=== PATIENT | female | born 1995 | race Caucasian/White ===

== ENCOUNTER → 2019-08-14 17:18 | Outpatient (CLI) | payer BC, SELFPAY ==
[2019-08-14 19:05] LABS: Follicle Stimulating Hormone 5.11 mIU/mL
[2019-08-14 19:14] LABS: Testosterone 42.7 ng/dL (5.71-77.0)
[2019-08-14 19:21] LABS: HCG Quantitative /Beta subunit < 2.4 mIU/mL
[2019-08-14 22:58] LABS: Prolactin 11.1 ng/mL (3.0-18.6)
[2019-08-16 07:35] LABS: Dehydroepiandrosterone Sulfate 320.8 ug/dL (110.0-431.7)
== END ==
PROVIDERS: Referring Provider Obstetrics & Gynecology; Visit Provider Obstetrics & Gynecology
DX: N91.2 Amenorrhea, unspecified (principal); N92.6 Irregular menstruation, unspecified
CPT/HCPCS: 36415; 82627; 83001; 84146; 84403; 84702

== ENCOUNTER → 2022-11-10 09:52 | Outpatient (CLI) | payer OTHER, SELFPAY ==
[2022-11-10 11:09] LABS: Add Manual Diff / Slide Review NO; Basophils Absolute Auto 100 /uL (0-100); Basophils Percent Auto 0.7 % (0-2); Eosinophils Absolute Auto 100 /uL (0-450); Eosinophils Percent Auto 1.4 % (2-4); Hematocrit 40.7 % (36-46); Hemoglobin 13.8 g/dL (12.0-16.0); Lymphocytes Absolute Auto 1800 /uL (1100-4500); Lymphocytes Percent Auto 23.4 % (25-40); Mean Corpuscular HGB Conc 33.9 % (30-36); Mean Corpuscular Hemoglobin 29.2 PG (26-34); Monocytes Absolute Auto 400 /uL (0-900); Monocytes Percent Auto 4.6 % (3-14); Neutrophils Absolute Auto 5400 /uL (1500-7000); Neutrophils Percent Auto 69.9 % (50-75); Platelet Count 348 X10^3/uL (150-400); Red Blood Cell Count 4.73 X10^6/uL (4.0-5.2); Red Cell Distribution Width 13.6 % (11.6-14.8); White Blood Cell Count 7.7 X10^3/uL (4.5-11.0)
[2022-11-10 12:33] LABS: HIV 1 & 2 Ab/Ag 4th Gen Combo NEGATIVE (NEGATIVE); Hep C Virus Ab w/Reflex Quant NEGATIVE s/c (NEGATIVE); Hepatitis B Surface Antigen NEGATIVE s/c (NEGATIVE); Rubella Antibody IgG 32.2 IU/mL (>15)
[2022-11-11 06:32] LABS: RPR Screen Non Reactive (Non Reactive)
[2022-11-11 15:20] LABS: Varicella IgG Antibody 1506 index (Immune >165)
== END ==
PROVIDERS: Referring Provider Obstetrics & Gynecology; Visit Provider Obstetrics & Gynecology
DX: Z34.01 Encounter for supervision of normal first pregnancy, first trimester (principal)
CPT/HCPCS: 36415; 80055; 86787; 86803; 86850; 86900; 86901; 87086; 87389

== ENCOUNTER → 2022-11-18 12:11 | Outpatient (CLI) | payer OTHER, SELFPAY ==
[2022-11-18 14:53] LABS: Urine N gonorrhoeae NOT DETECTED
[2022-11-18 15:42] LABS: Urine Chlamydia NOT DETECTED
== END ==
PROVIDERS: Visit Provider Obstetrics & Gynecology
DX: Z34.01 Encounter for supervision of normal first pregnancy, first trimester (principal); Z3A.01 Less than 8 weeks gestation of pregnancy
CPT/HCPCS: 87491; 87591

== ENCOUNTER → 2023-01-08 09:00 | Outpatient (CLI) | payer OTHER, SELFPAY | PROVIDERS: Referring Provider Obstetrics & Gynecology; Visit Provider Obstetrics & Gynecology | DX: Z34.82 Encounter for supervision of other normal pregnancy, second trimester (principal) | CPT/HCPCS: 36415 ==

== ENCOUNTER → 2023-02-05 08:56 | Outpatient (CLI) | payer OTHER, SELFPAY ==
[2023-02-09 21:23] LABS: AFP Value 41.8 ng/mL (.); Insulin Dep Diabetes No (.); OSBR Risk 1IN 10000 (.); Results Report (.); Test Results *Screen Negative* (.)
[2023-02-11 09:30] LABS: PDF SCANNED
== END ==
PROVIDERS: Referring Provider Obstetrics & Gynecology; Visit Provider Obstetrics & Gynecology
DX: Z34.02 Encounter for supervision of normal first pregnancy, second trimester (principal); Z3A.18 18 weeks gestation of pregnancy
CPT/HCPCS: 36415; 82105

== ENCOUNTER → 2023-02-19 08:45 | Outpatient (CLI) | payer OTHER, SELFPAY ==
--- NOTE | 2023-02-19 08:46 | DI.US.S_ITS ---
PROCEDURE: US OB >= 14 WEEKS FETUS INDICATIONS: 20 wk anatomy OUTSIDE/PRIOR DATING DATA: Last menstrual period (LMP): 10/02/2022. LMP-based estimated date of delivery (ARIELA): 07/09/2023. First dating scan (date and location): Today's exam. Estimated date of delivery (ARIELA) from first dating scan: 07/18/2023. The calculations are made using the clinical ARIELA of 07/09/2023. TECHNIQUE: Real-time scanning was performed of the fetus, with image documentation and biometric measurements. Endovaginal scanning: Not performed COMPARISON: None. FINDINGS: General: A single living intrauterine gestation is present. Presentation: Vertex. Placenta: Placental position is anterior , without previa. Amniotic fluid index: 8.1 cm, normal range is 5-24 cm. Single deepest vertical pocket is 2.5 cm. heart rate: 144 beats per minute. Maternal cervical canal: 3.5 cm long. Normal lower limit is 2.5 cm. biometrics: Biparietal diameter: 4.0 cm, 18 weeks 1 day Head circumference: 15.9 cm, 18 weeks 5 days Abdominal circumference: 13.2 cm, 18 weeks 5 days Femur length: 2.9 cm, 19 weeks Clinically estimated gestational age: 20 weeks Composite gestational age from present scan: 18 weeks 5 days Estimated weight and percentile: 259 g, 4th percentile Anatomic survey: Neuro: Ventricles are non-dilated at less than 10 mm. Cisterna magna is normal at 3-11 mm. Cerebellum is normal in size and morphology. Nuchal skin fold: Normal at less than 6 mm between 14-21 weeks gestational age. Face: Nose and lips, facial profile are normal. Spine: No evidence for spina bifida. Heart: 4-chambered heart is present, with normal ventricular outflow tracts. Diaphragm: Diaphragm is intact. Stomach: Left-sided stomach is present. The stomach is mildly distended/prominent. Kidneys: No hydronephrosis. Normal is less than 5 mm in 2nd trimester, less than 7 mm in 3rd trimester. Cord: 3-vessel cord has orthotopic insertion. Bladder: Normal in size. Extremities: All 4 extremities identified. IMPRESSION: Single living intrauterine at 20 weeks 0 days, ARIELA of 07/09/2023. Estimated weight of 259 g, 4th percentile. stomach is prominent, otherwise normal anatomy survey. Attention on follow-up. We strive to produce accurate, complete, and clear reports of imaging services. To assist us in improving patient care, this report was composed using standard report templates and voice recognition software. Therefore, it may contain abnormal punctuation, insertions and/or omissions. Occasional wrong-word or sound-alike substitutions may occur. Though we review the report and make efforts to correct it, we do recommend that the report be read carefully in proper context to recognize any text inaccuracies. Dictated by: Magdaleno Francis M.D. on 02/19/2023 at 17:05 Approved by: Magdaleno Francis M.D. on 02/19/2023 at 17:07
== END ==
PROVIDERS: Referring Provider Obstetrics & Gynecology; Visit Provider Obstetrics & Gynecology
DX: Z34.02 Encounter for supervision of normal first pregnancy, second trimester (principal); Z3A.18 18 weeks gestation of pregnancy
CPT/HCPCS: 76811

== ENCOUNTER → 2023-04-02 11:02 | Outpatient (CLI) | payer OTHER, SELFPAY ==
[2023-04-02 13:48] LABS: Hematocrit 38.9 % (36-46); Hemoglobin 13.3 g/dL (12.0-16.0)
[2023-04-02 13:59] LABS: GTT (PREG) 1 Hour PP 50gm Dose 122 mg/dL (76-139)
== END ==
PROVIDERS: PCP Family Medicine; Referring Provider Obstetrics & Gynecology; Visit Provider Obstetrics & Gynecology
DX: Z34.02 Encounter for supervision of normal first pregnancy, second trimester (principal); Z3A.26 26 weeks gestation of pregnancy
CPT/HCPCS: 36415; 82950; 85014; 85018; 86850

== ENCOUNTER 2023-04-02 11:03 | Outpatient (CLI) | payer OTHER, SELFPAY | END 2023-04-02 12:11 | disposition home or self-care (01) | LOC: LABOR 11:12 → OB 04-06 13:41 | PROVIDERS: PCP Family Medicine; Referring Provider Obstetrics & Gynecology; Visit Provider Obstetrics & Gynecology | DX: O36.8320 Maternal care for abnormalities of the fetal heart rate or rhythm, second trimester, not applicable or unspecified (principal); Z3A.26 26 weeks gestation of pregnancy; Z34.02 Encounter for supervision of normal first pregnancy, second trimester; Z3A.36 36 weeks gestation of pregnancy | CPT/HCPCS: 36415; 59025; 82950; 85014; 85018; 86850; G0378; G0379 ==

== ENCOUNTER 2023-05-01 14:57 | Outpatient (CLI) | payer OTHER, SELFPAY ==
--- NOTE | 2023-05-01 15:30 | PM.PROC.1 ---
Procedures Date/Time Date of procedure: 05/01/23 Time of procedure: 15:30 General Procedure description: 27YO @ 30wks 1day here for scheduled testing for growth restriction. Baseline FHR: 145bpm moderate variability Accels present Decels absent Reactive NST Continue testing as previously scheduled.
== END 2023-05-01 15:39 | disposition home or self-care (01) ==
LOC: LABOR 16:26 → OB 05-10 11:57
PROVIDERS: PCP Family Medicine; Referring Provider Nurse Practitioner Obstetrics & Gynecology; Visit Provider Nurse Practitioner Obstetrics & Gynecology
DX: O36.5930 Maternal care for other known or suspected poor fetal growth, third trimester, not applicable or unspecified (principal); Z3A.30 30 weeks gestation of pregnancy
CPT/HCPCS: 59025; G0378; G0379

== ENCOUNTER 2023-05-08 09:42 | Outpatient (CLI) | payer OTHER, SELFPAY | END 2023-05-08 11:02 | disposition home or self-care (01) | LOC: OB 05-10 12:00 | PROVIDERS: PCP Family Medicine; Referring Provider Obstetrics & Gynecology; Visit Provider Obstetrics & Gynecology | DX: O36.5930 Maternal care for other known or suspected poor fetal growth, third trimester, not applicable or unspecified (principal); Z3A.31 31 weeks gestation of pregnancy | CPT/HCPCS: 59025; G0378; G0379 ==

== ENCOUNTER 2023-05-13 11:33 | Outpatient (CLI) | payer OTHER, SELFPAY | END 2023-05-13 12:00 | disposition home or self-care (01) | LOC: LABOR 11:58 → OB 05-17 11:54 | PROVIDERS: PCP Family Medicine; Referring Provider Obstetrics & Gynecology; Visit Provider Obstetrics & Gynecology | DX: Z36.9 Encounter for antenatal screening, unspecified (principal) | CPT/HCPCS: 59025; G0378; G0379 ==

== ENCOUNTER 2023-05-17 08:51 | Outpatient (CLI) | payer OTHER, SELFPAY | END 2023-05-17 09:28 | disposition home or self-care (01) | LOC: LABOR 10:00 → OB 05-25 06:48 | PROVIDERS: PCP Family Medicine; Referring Provider Obstetrics & Gynecology; Visit Provider Obstetrics & Gynecology | DX: Z36.9 Encounter for antenatal screening, unspecified (principal) | CPT/HCPCS: 59025; G0378; G0379 ==

== ENCOUNTER → 2023-05-25 09:18 | Outpatient (CLI) | payer OTHER, SELFPAY ==
[2023-05-26 11:02] LABS: Strep Grp B PCR NEG for Grp B Strep
== END ==
PROVIDERS: PCP Family Medicine; Visit Provider Obstetrics & Gynecology
DX: O09.93 Supervision of high risk pregnancy, unspecified, third trimester (principal); Z3A.36 36 weeks gestation of pregnancy
CPT/HCPCS: 87653

== ENCOUNTER 2023-05-25 09:33 | Outpatient (CLI) | payer OTHER, SELFPAY | END 2023-05-25 10:43 | disposition home or self-care (01) | LOC: LABOR 09:53 → OB 05-27 12:25 | PROVIDERS: PCP Family Medicine; Referring Provider Obstetrics & Gynecology; Visit Provider Obstetrics & Gynecology | DX: O36.5930 Maternal care for other known or suspected poor fetal growth, third trimester, not applicable or unspecified (principal); Z3A.33 33 weeks gestation of pregnancy; O09.93 Supervision of high risk pregnancy, unspecified, third trimester; Z3A.36 36 weeks gestation of pregnancy | CPT/HCPCS: 59025; 87653; G0378; G0379 ==

== ENCOUNTER 2023-06-01 08:42 | Outpatient (CLI) | payer OTHER, SELFPAY ==
--- NOTE | 2023-06-01 10:29 | P.TNLD_ITS ---
Visit Information Visit Information Date of evaluation: 06/01/23 Primary OB Provider: Tati Taylor Comments/Additional reasons for admission: Pt is a 28yo at 34w4d here for NST for IUGR. Pt is feeling her baby move regularly. No LOF, vaginal bleeding, contractions. [facility] Medical History (Updated 05/20/23 @ 07:00 by Tati Taylor MD) Acne Headache Fractures Chronic back pain Ankle pain Insomnia Psoriasis Migraines Anxiety and depression Surgical History (Updated 08/15/19 @ 11:28 by Abbie Lynn MD) H/O wisdom tooth extraction Family History (Updated 08/27/19 @ 19:42 by Alie Alcala) Grandmother Hypertension Cancer Mother Asthma Migraines Grandfather Diabetes mellitus Irregular heart rate Social History marital status: number of children: 0 household members: spouse and family lives independently: Yes caregiver/support person: No housing: house pets and animals: Yes education level: vocational occupational status: employed current occupational exposures/hazards: No alaina/pentecostalism: Sabianism special alaina needs: No travel history: recent seatbelt use: always water heater temp set < 120 deg: Yes working smoke detector in home: Yes fire extinguisher in home: No (will get one) carbon monox detector in home: Yes firearms in home: Yes firearms unloaded and locked: Yes do you feel safe at home: Yes Smoking Status: Never smoker second hand exposure: No alcohol intake: former substance use type: marijuana during the past year weight has: remained stable well-balanced diet: rarely or never daily servings fruits/ve-1 caffeine: Yes (AM latte) Type(s) of exercise: walking and other frequency: daily Evaluation Evaluation Baseline heart rate: 135 Variability: Moderate (11-25) monitor accelerations: Present Monitor Decelerations: Absent Diagnosis, Plan/Disposition Final Diagnosis (1) growth restriction: Status: Acute Plan/Disposition Plan: Pt is a 28yo at 34w4d here for NST for IUGR. NST reactive. Continue testing. OB Disposition: home
== END 2023-06-01 10:12 | disposition home or self-care (01) ==
LOC: OB 06-03 10:02
PROVIDERS: PCP Family Medicine; Referring Provider Obstetrics & Gynecology; Visit Provider Obstetrics & Gynecology
DX: O36.5930 Maternal care for other known or suspected poor fetal growth, third trimester, not applicable or unspecified (principal); Z3A.34 34 weeks gestation of pregnancy
CPT/HCPCS: 59025; G0378; G0379

== ENCOUNTER 2023-06-07 07:50 | Outpatient (CLI) | payer OTHER, SELFPAY ==
--- NOTE | 2023-06-07 09:19 | PM.OBTRLD ---
Visit Information Visit Information Date of evaluation: 06/07/23 Primary OB Provider: Tati Taylor On-call OB Provider: Ml Zhang Reason for Evaluation: Yes non-stress test non-stress test reason: other (IUGR) Vital Signs Vital Signs: Blood pressure 112/67, pulse 99, temperature 36.6? COUNTS INCLUDE 234 BEDS AT [facility] Medical History (Updated 06/07/23 @ 09:23 by Ml Zhang MD) Acne Headache Fractures Chronic back pain Ankle pain Insomnia Psoriasis Migraines Anxiety and depression Surgical History (Updated 08/15/19 @ 11:28 by Abbie Lynn MD) H/O wisdom tooth extraction Family History (Updated 08/27/19 @ 19:42 by Alie Alcala) Grandmother Hypertension Cancer Mother Asthma Migraines Grandfather Diabetes mellitus Irregular heart rate Social History marital status: number of children: 0 household members: spouse and family lives independently: Yes caregiver/support person: No housing: house pets and animals: Yes education level: vocational occupational status: employed current occupational exposures/hazards: No alaina/adventist: Rastafari special alaina needs: No travel history: recent seatbelt use: always water heater temp set < 120 deg: Yes working smoke detector in home: Yes fire extinguisher in home: No (will get one) carbon monox detector in home: Yes firearms in home: Yes firearms unloaded and locked: Yes do you feel safe at home: Yes Smoking Status: Never smoker second hand exposure: No alcohol intake: former substance use type: marijuana during the past year weight has: remained stable well-balanced diet: rarely or never daily servings fruits/ve-1 caffeine: Yes (AM latte) Type(s) of exercise: walking and other frequency: daily Review of Systems Review of Systems Narrative: Patient states good movement no leakage of fluid no vaginal bleeding no cramping. Evaluation Evaluation Baseline heart rate: 135 Variability: Average (6-10) monitor accelerations: Present Monitor Decelerations: Absent Contraction Frequency (minutes): 0 Category of Tracing: Non-reactive (Not technically reactive but 1 acceleration in 60 minutes) Diagnosis, Plan/Disposition Final Diagnosis (1) Encounter for supervision of high risk in third trimester, antepartum: Status: Acute (2) growth restriction: Status: Acute (3) 35 weeks gestation of : Status: Acute Plan/Disposition Plan: Patient being monitored for IUGR at 35 weeks. She has an appointment in 3 days with MFM for growth, uterine artery Doppler and biophysical profile. Today on ultrasound DESTINY of 8. Good movement, tone, breathing. Biophysical profile 01/07 Routine precautions reviewed with the patient. OB Disposition: home
== END 2023-06-07 09:27 | disposition home or self-care (01) ==
LOC: LABOR 09:08 → OB 06-08 16:23
PROVIDERS: PCP Family Medicine; Referring Provider Specialist; Visit Provider Specialist
DX: O36.5930 Maternal care for other known or suspected poor fetal growth, third trimester, not applicable or unspecified (principal); Z3A.35 35 weeks gestation of pregnancy
CPT/HCPCS: 59025; 76815; G0378; G0379

== ENCOUNTER 2023-06-12 13:03 | Outpatient (CLI) | payer OTHER, SELFPAY ==
--- NOTE | 2023-06-12 13:51 | PM.OBTRLD ---
Visit Information Visit Information Date of evaluation: 06/12/23 Primary OB Provider: Tati Taylor On-call OB Provider: Osiris Li Reason for Evaluation: Yes non-stress test and Yes other Comments/Additional reasons for admission: Patient is a 28 yo G1 at 36w1d with c/b IUGR followed by MFM presenting for decreased FM. NST category 1. No VB, contractions, LOF. FM felt in triage. DC to home with precautions. F/u Wednesday as scheduled. PFSH Medical History (Updated 06/07/23 @ 09:23 by Ml Zhang MD) Acne Headache Fractures Chronic back pain Ankle pain Insomnia Psoriasis Migraines Anxiety and depression Surgical History (Updated 08/15/19 @ 11:28 by Abbie Lynn MD) H/O wisdom tooth extraction Family History (Updated 08/27/19 @ 19:42 by Alie Alcala) Grandmother Hypertension Cancer Mother Asthma Migraines Grandfather Diabetes mellitus Irregular heart rate Social History marital status: number of children: 0 household members: spouse and family lives independently: Yes caregiver/support person: No housing: house pets and animals: Yes education level: vocational occupational status: employed current occupational exposures/hazards: No alaina/scientologist: Hoahaoism special alaina needs: No travel history: recent seatbelt use: always water heater temp set < 120 deg: Yes working smoke detector in home: Yes fire extinguisher in home: No (will get one) carbon monox detector in home: Yes firearms in home: Yes firearms unloaded and locked: Yes do you feel safe at home: Yes Smoking Status: Never smoker second hand exposure: No alcohol intake: former substance use type: marijuana during the past year weight has: remained stable well-balanced diet: rarely or never daily servings fruits/ve-1 caffeine: Yes (AM latte) Type(s) of exercise: walking and other frequency: daily Evaluation Evaluation Baseline heart rate: 145 Variability: Moderate (11-25) monitor accelerations: Present Monitor Decelerations: Absent Contraction Frequency (minutes): 0 Category of Tracing: Reactive Status: Category l Diagnosis, Plan/Disposition Plan/Disposition Plan: DC to home with precautions. F/u Wednesday as scheduled. OB Disposition: home
== END 2023-06-12 13:45 | disposition home or self-care (01) ==
LOC: OB 06-15 11:24
PROVIDERS: PCP Family Medicine; Referring Provider Family Medicine; Visit Provider Family Medicine
DX: O36.8130 Decreased fetal movements, third trimester, not applicable or unspecified (principal); Z3A.36 36 weeks gestation of pregnancy
CPT/HCPCS: 59025; G0378; G0379

== ENCOUNTER 2023-06-14 14:06 | Outpatient (CLI) | payer OTHER, SELFPAY ==
--- NOTE | 2023-06-14 14:53 | P.TNLD_ITS ---
Visit Information Visit Information Date of evaluation: 06/14/23 Primary OB Provider: Tati Taylor On-call OB Provider: Ml Zhang Reason for Evaluation: Yes non-stress test non-stress test reason: other (IUGR) [facility] Medical History (Updated 06/14/23 @ 14:54 by Ml Zhang MD) Acne Headache Fractures Chronic back pain Ankle pain Insomnia Psoriasis Migraines Anxiety and depression Surgical History (Updated 08/15/19 @ 11:28 by Abbie Lynn MD) H/O wisdom tooth extraction Family History (Updated 08/27/19 @ 19:42 by Alie Alcala) Grandmother Hypertension Cancer Mother Asthma Migraines Grandfather Diabetes mellitus Irregular heart rate Social History marital status: number of children: 0 household members: spouse and family lives independently: Yes caregiver/support person: No housing: house pets and animals: Yes education level: vocational occupational status: employed current occupational exposures/hazards: No alaina/uatsdin: Restorationist special alaina needs: No travel history: recent seatbelt use: always water heater temp set < 120 deg: Yes working smoke detector in home: Yes fire extinguisher in home: No (will get one) carbon monox detector in home: Yes firearms in home: Yes firearms unloaded and locked: Yes do you feel safe at home: Yes Smoking Status: Never smoker second hand exposure: No alcohol intake: former substance use type: marijuana during the past year weight has: remained stable well-balanced diet: rarely or never daily servings fruits/ve-1 caffeine: Yes (AM latte) Type(s) of exercise: walking and other frequency: daily Evaluation Evaluation Baseline heart rate: 140 Variability: Moderate (11-25) monitor accelerations: Present Monitor Decelerations: Absent Contraction Frequency (minutes): 0 Diagnosis, Plan/Disposition Final Diagnosis (1) 36 weeks gestation of : Status: Acute (2) Encounter for supervision of high risk in third trimester, antepartum: Status: Acute (3) growth restriction: Status: Acute Plan/Disposition Plan: Reactive nonstress test patient to office for biophysical profile, DESTINY check OB Disposition: home
== END 2023-06-14 14:42 | disposition home or self-care (01) ==
LOC: OB 06-15 11:26
PROVIDERS: PCP Family Medicine; Referring Provider Specialist; Visit Provider Specialist
DX: O36.5930 Maternal care for other known or suspected poor fetal growth, third trimester, not applicable or unspecified (principal); Z3A.36 36 weeks gestation of pregnancy
CPT/HCPCS: 59025; G0378; G0379

== ENCOUNTER 2023-06-17 10:22 | Outpatient (CLI) | payer BC, SELFPAY ==
--- NOTE | 2023-06-17 10:50 | P.TNLD_ITS ---
Visit Information Visit Information Date of evaluation: 06/17/23 On-call OB Provider: Ml Zhang Reason for Evaluation: Yes non-stress test non-stress test reason: other (SGA) Vital Signs Vital Signs: Blood pressure 120/72, pulse 90, temperature 36.6? [facility] Medical History (Updated 06/14/23 @ 16:25 by Ml Zhang MD) Acne Headache Fractures Chronic back pain Ankle pain Insomnia Psoriasis Migraines Anxiety and depression Surgical History (Updated 08/15/19 @ 11:28 by Abbie Lynn MD) H/O wisdom tooth extraction Family History (Updated 08/27/19 @ 19:42 by Alie Alcala) Grandmother Hypertension Cancer Mother Asthma Migraines Grandfather Diabetes mellitus Irregular heart rate Social History marital status: number of children: 0 household members: spouse and family lives independently: Yes caregiver/support person: No housing: house pets and animals: Yes education level: vocational occupational status: employed current occupational exposures/hazards: No alaina/zoroastrian: Mormonism special alaina needs: No travel history: recent seatbelt use: always water heater temp set < 120 deg: Yes working smoke detector in home: Yes fire extinguisher in home: No (will get one) carbon monox detector in home: Yes firearms in home: Yes firearms unloaded and locked: Yes do you feel safe at home: Yes Smoking Status: Never smoker second hand exposure: No alcohol intake: former substance use type: marijuana during the past year weight has: remained stable well-balanced diet: rarely or never daily servings fruits/ve-1 caffeine: Yes (AM latte) Type(s) of exercise: walking and other frequency: daily Evaluation Evaluation Baseline heart rate: 135 Variability: Moderate (11-25) monitor accelerations: Present Monitor Decelerations: Absent Category of Tracing: Reactive Status: Category l Diagnosis, Plan/Disposition Final Diagnosis (1) 36 weeks gestation of : Status: Acute (2) Encounter for supervision of high risk in third trimester, antepartum: Status: Acute (3) growth restriction: Status: Acute Plan/Disposition Plan: Reactive nonstress test. Patient is scheduled to come in in 3 days for Cervidil placement for induction OB Disposition: home
== END 2023-06-17 10:55 | disposition home or self-care (01) ==
LOC: LABOR 10:33 → OB 06-21 06:44
PROVIDERS: PCP Family Medicine; Referring Provider Specialist; Visit Provider Specialist
DX: O36.5930 Maternal care for other known or suspected poor fetal growth, third trimester, not applicable or unspecified (principal); O09.93 Supervision of high risk pregnancy, unspecified, third trimester; Z3A.36 36 weeks gestation of pregnancy
CPT/HCPCS: 59025; G0378; G0379

== ENCOUNTER 2023-06-20 18:56 | Inpatient (IN) | payer BC, SELFPAY ==
[2023-06-20 19:54] LABS: Add Manual Diff / Slide Review NO; Basophils Absolute Auto 100 /uL (0-100); Basophils Percent Auto 0.4 % (0-2); Eosinophils Absolute Auto 100 /uL (0-450); Eosinophils Percent Auto 0.7 % (2-4); Hematocrit 37.1 % (36-46); Hemoglobin 12.9 g/dL (12.0-16.0); Lymphocytes Absolute Auto 2700 /uL (1100-4500); Lymphocytes Percent Auto 16.6 % (25-40); Mean Corpuscular HGB Conc 34.8 % (30-36); Mean Corpuscular Hemoglobin 29.4 PG (26-34); Mean Corpuscular Volume 84.4 fL (80-100); Monocytes Absolute Auto 900 /uL (0-900); Monocytes Percent Auto 5.4 % (3-14); Neutrophils Absolute Auto 12700 /uL (1500-7000); Neutrophils Percent Auto 76.9 % (50-75); Platelet Count 295 X10^3/uL (150-400); Red Cell Distribution Width 13.7 % (11.6-14.8); White Blood Cell Count 16.5 X10^3/uL (4.5-11.0)
[2023-06-20 20:19] VITALS: BP 109/78
[2023-06-20] MEDS: DINOPROSTONE VAG (CERVIDIL) 10 MG VAG (20:42)
--- NOTE | 2023-06-21 09:21 | P.HPOB_ITS ---
OB HPI Date/Time Date of admission: 06/20/23 Date Patient Seen: 06/21/23 History of Present Condition Chief complaint: IUP, 37+4 wks, IUGR, Rh Neg, GBS Neg : 1 Para: 0 Estimated Date of Delivery: 07/09/21 Estimated Gestational Age (weeks): 37+3 Narrative: Jl Monroe is a 28 year old admitted now at 37+34 weeks EGA for induction due to IUGR; 4%ile at 20 wks, at 24 wks 4%ile. At 35 wks <1%'tile. Followed by MFM weekly. Induction scheduled 06/21/23 at 37 weeks. Her most recent US at also shows borderline oligohydramnios w/ DESTINY 4.4 cm. course also complicated by Rh-negative status in the antepartum with the patient receiving RhoGAM at 28 weeks. Patient's course has otherwise been uneventful with solid early dating. GBS status is negative. Indications Indication for induction OB: oligohydramnios and intra-uterine growth restriction History of Present care: good care Dating criteria: LMP confirmed by 1st trimester US Ultrasounds: normal 1st trimester US and abnormal US findings (IUGR, borderline oligohydramnios) Obstetrical complications: other (Rh negative status; RhoGAM administered at 28 weeks.) Medical complications: none Preadmission Labs Blood type: 0 (-) negative -: Antibody screen: positive, GBS status: negative, HBsAG: negative, HIV: negative and RPR/VDLR: negative -: Chlamydia screen: not detected and Gonorrhea screen: not detected -: Rubella: immune and Varicella: immune HCT: 37.1 HCAB: negative PAP: Normal Quad screen: Normal (AFP testing is negative) Cell-free DNA: Low risk female 1 hr GTT: 122 Prior (ies) History: N/A Evaluation Evaluation Baseline heart rate: 140 Variability: Moderate (11-25) monitor accelerations: Present Monitor Decelerations: Absent Contraction Frequency (minutes): 3 Uterine Contraction Intensity: Mild Category of Tracing: Reactive Status: Category l Dilation (cm): 1 Effacement (%): 60 Dilation: 1-2 cm Effacement: 60-70% station: 0 Position of cervix: mid Consistency: soft Guzman score: 8 [facility] Medical History (Updated 06/14/23 @ 16:25 by Ml Zhang MD) Acne Headache Fractures Chronic back pain Ankle pain Insomnia Psoriasis Migraines Anxiety and depression Surgical History (Updated 08/15/19 @ 11:28 by Abbie Lynn MD) H/O wisdom tooth extraction Family History (Updated 08/27/19 @ 19:42 by Alie Alcala) Grandmother Hypertension Cancer Mother Asthma Migraines Grandfather Diabetes mellitus Irregular heart rate Social History marital status: number of children: 0 household members: spouse and family lives independently: Yes caregiver/support person: No housing: house pets and animals: Yes education level: vocational occupational status: employed current occupational exposures/hazards: No alaina/orthodox: Caodaism special alaina needs: No travel history: recent seatbelt use: always water heater temp set < 120 deg: Yes working smoke detector in home: Yes fire extinguisher in home: No (will get one) carbon monox detector in home: Yes firearms in home: Yes firearms unloaded and locked: Yes do you feel safe at home: Yes Smoking Status: Never smoker second hand exposure: No alcohol intake: former substance use type: marijuana during the past year weight has: remained stable well-balanced diet: rarely or never daily servings fruits/ve-1 caffeine: Yes (AM latte) Type(s) of exercise: walking and other frequency: daily Meds Home Medications and Allergies Home Medications Medication Instructions Recorded Confirmed Type prenat.vits,seamus,emv-vuxh-rshwd 1 tab PO DAILY 11/09/22 06/20/23 History Allergies Allergy/AdvReac Type Severity Reaction Status Date / Time No Known Drug Allergies Allergy Unverified 06/14/23 15:31 Review of Systems Review of Systems Narrative: Problem-specific ROS positives included in HPI OB Exam Vital signs Blood Pressure: 113/70 Pulse Rate: 87 Temperature: 97.3 F HENMT Head: normal to inspection, normocephalic and atraumatic Eyes General: appearance normal, both eyes and all related structures Resp Effort & Inspection: normal respiratory effort and able to speak in complete sentences Auscultation: clear to auscultation bilaterally Cardio Rate: regular rate Rhythm: regular rhythm Heart Sounds: S1 normal, S2 normal and no murmurs Extremities Lower extremity: Yes normal to inspection GI Inspection: normal to inspection Palpation: Yes soft and Yes no hepatosplenomegaly Uterus Location (Fundal Height): 34 Presentation: vertex Estimated Weight (lbs): 5 Objective Labs 06/20/23 19:40 Labs: Laboratory Results - last 24 hr 06/20/23 19:40 WBC 16.5 H RBC 4.40 Hgb 12.9 Hct 37.1 MCV 84.4 MCH 29.4 MCHC 34.8 RDW 13.7 Plt Count 295 Neut % (Auto) 76.9 H Lymph % (Auto) 16.6 L [place] % (Auto) 5.4 Eos % (Auto) 0.7 L Baso % (Auto) 0.4 Neut # (Auto) 87805 H Lymph # (Auto) 2700 [place] # (Auto) 900 Eos # (Auto) 100 Baso # (Auto) 100 Blood Type O Negative Antibody Screen Positive Antibody Identification Anti-D Assessment and Plan Assessment and Plan Assessment and Plan narrative: ASSESSMENT 1. Intrauterine , 37+3 wks EGA 2. IUGR 3. Rh negative status 4. GBS negative status PLAN 1. Admit for cervical ripening/induction 2. See admission orders
[2023-06-21 09:54] VITALS: BP 113/70; PULSE 87; TEMP 36.3
--- NOTE | 2023-06-21 12:32 | PM.OBPNLAB ---
Date/Time Date Patient Seen: 06/21/23 Time Patient Seen: 12:32 Pain Control Pain control: tolerating well Pelvic Exam Dilation (cm): 1 Effacement (%): 60 station: 0 Amniotic membrane status: Intact Contractions Contractions on admission: irregular Monitor mode: External Contraction pattern: Irregular Contraction phase: Resting Contraction intensity: Mild Status status: Category l Heart Rate Baseline: 140 Monitor Accelerations: Present Monitor Decelerations: Absent Monitor Variability: Moderate Assessment and Plan Assessment: induction ongoing Plan: begin patient augmentation Comments: Pitocin augmentation ordered earlier this a.m. but unable to be started due to patient load/staffing. Anticipate Pitocin augmentation will begin within the next hour. Tracing remains category 1.
[2023-06-21] MEDS: ONDANSETRON 4 MG/2 ML INJ IV (14:39)
[2023-06-21] MEDS: OXYTOCIN PREMIX 30 UNIT/500 ML PLAST..BAG IV (14:41)
[2023-06-21] MEDS: LACTATED RINGERS 1,000 ML 100 ML IV ×2 (14:41→19:03)
--- NOTE | 2023-06-21 18:27 | PM.OBPNLAB ---
Date/Time Date Patient Seen: 06/21/23 Time Patient Seen: 18:28 Pain Control Pain control: tolerating well Pelvic Exam Dilation (cm): 1 Effacement (%): 80 station: 0 Amniotic membrane status: Intact Contractions Contractions on admission: irregular Monitor mode: External Pitocin rate (mU/min): 12 Contraction frequency (min): 4 Contraction duration (min): 1 Contraction pattern: Irregular Contraction phase: Resting Contraction intensity: Mild Status status: Category l Heart Rate Baseline: 145 Monitor Accelerations: Present Monitor Decelerations: Absent Monitor Variability: Moderate Assessment and Plan Assessment: induction ongoing Plan: continuous present management Comments: Anticipate . Call responsibilities transferred to Dr. Bradford.
[2023-06-21] MEDS: BISACODYL 10 MG SUPP PR (19:03)
[2023-06-21] MEDS: ZOLPIDEM 5 MG TABLET PO (21:21)
[2023-06-21] MEDS: miSOPROStoL 25 MCG TABLET 50 MCG PO (21:23)
[2023-06-22] MEDS: miSOPROStoL 25 MCG TABLET 50 MCG PO (03:11)
--- NOTE | 2023-06-22 08:18 | PM.OBPNLAB ---
Date/Time Date Patient Seen: 06/22/23 Time Patient Seen: 08:18 Pain Control Pain control: tolerating well Pelvic Exam Dilation (cm): 1 Effacement (%): 90 station: 0 Amniotic membrane status: Intact Contractions Contractions on admission: irregular Monitor mode: External Contraction frequency (min): 4 Contraction pattern: Irregular Contraction phase: Resting Contraction intensity: Mild Status status: Category l Heart Rate Baseline: 140 Monitor Accelerations: Present Monitor Decelerations: Absent Monitor Variability: Moderate Assessment and Plan Assessment: induction ongoing Comments: Patient placed on cytotec overnight w/ little cervical change. Will re-start Pitocin and AROM when possible. Patient declines givens baloon placement.
[2023-06-22] MEDS: ONDANSETRON 4 MG/2 ML INJ IV ×2 (08:35→20:02)
[2023-06-22] MEDS: OXYTOCIN PREMIX 30 UNIT/500 ML PLAST..BAG IV (08:38)
[2023-06-22] MEDS: LACTATED RINGERS 1,000 ML 100 ML IV ×2 (15:14→22:43)
--- NOTE | 2023-06-22 17:58 | PM.OBPNLAB ---
Date/Time Date Patient Seen: 06/22/23 Time Patient Seen: 17:58 Pain Control Pain control: tolerating well Pelvic Exam Dilation (cm): 2 Effacement (%): 95 station: 0 Amniotic membrane status: Ruptured (AROM, clear fluid performed 1750) Contractions Contractions on admission: irregular Monitor mode: External Pitocin rate (mU/min): 18 Contraction frequency (min): 2 Contraction duration (min): 1 Contraction pattern: Regular Contraction phase: Resting Contraction intensity: Mild Status status: Category l Heart Rate Baseline: 40 Monitor Accelerations: Present Monitor Decelerations: Absent Monitor Variability: Moderate Assessment and Plan Assessment: induction ongoing Comments: Will temporarily reduce Pitocin infusion rate following SROM and gradually titrate upwards as needed to maintain adequate contraction pattern.
--- NOTE | 2023-06-23 01:55 | PM.AN.REGBLK ---
Regional Block Pre-procedure Procedure: Continuous Lumbar Epidural for L&D Attending OB provider: Paul Brannon PMH/ROS narrative: 37+ EGA with IUGR for IOL. AROM yesterday afternoon. No medical complications, no significant PMH. ASA Class: II Labs: Hct 37.1 % (36-46) 06/20/23 19:40 Plt Count 295 X10^3/uL (150-400) 06/20/23 19:40 Medications: Current Medications Generic Name Dose Route Start Last Admin Trade Name Freq PRN Reason Stop Dose Admin Acetaminophen 650 mg 06/20/23 19:04 Acetaminophen 325 Mg Tablet PO Q4HR PRN Fever/Mild Pain (1-3) Calcium Carbonate 1,000 mg 06/20/23 19:04 Calcium Carbonate 500 Mg Tab PO Q2H PRN Dyspepsia Lactated Ringer's 1,000 mls @ 100 mls/hr 06/20/23 19:15 06/22/23 22:43 Lactated Ringers IV 100 mls/hr CONT TIM Administration Oxytocin/Lactated Ringer's 30 unit in 500 mls @ 2 mls/hr 06/21/23 10:04 06/22/23 08:38 Oxytocin Premix IV 2 milliunit/min TITRATE TIM 2 mls/hr Administration Protocol 2 MILLIUNIT/MIN Misoprostol 50 mcg 06/21/23 21:00 06/22/23 03:11 Misoprostol 25 Mcg Tablet PO 50 mcg QID TIM Administration Ondansetron HCl 4 mg 06/21/23 14:27 06/22/23 20:02 Ondansetron 4 Mg/2 Ml Inj IV 4 mg Q6HR PRN Administration Nausea And Vomiting Terbutaline Sulfate 0.25 mg 06/21/23 20:17 Terbutaline 1 Mg/Ml Vial SUBCUT PRN PRN tachysystole Zolpidem Tartrate 5 mg 06/20/23 19:04 06/21/23 21:21 Zolpidem 5 Mg Tablet PO 5 mg BEDTIME PRN Administration Sleep Allergies: Allergies Allergy/AdvReac Type Severity Reaction Status Date / Time No Known Drug Allergies Allergy Unverified 06/14/23 15:31 Procedure Insertion date: 06/23/23 Insertion time: 01:40 Prep/Local: betadine x3 and 1% lidocaine Interspace: L3-4 Patient position: sitting Needle: 18 gauge Hustead (CSE: 27g Pencan through Hustead, clear CSF, 1mL 0.25% bupiv PF) Loss of resistance with: saline RAHEL at (cm): 5 Catheter placed at SKIN (cm): 11 Catheter in SPACE (cm): 6 Insertion: No CSF, No Blood, No Paresthesia with insertion, No Paresthesia with injection and No Test dose reaction Initial Medications TEST DOSE time: 01:40 TEST DOSE: 1.5% lidocaine with epinephrine 1:200k (mL): 3 BOLUS DOSE time: 01:50 BOLUS DOSE (mL): 4 BOLUS DOSE med: other (infusate) Infusion INFUSION: 0.125% bupivacaine and with fentanyl 2 mcg/mL Initial rate (mL/hr): 8 Subsequent interventions: PCEA 8+4 Post-procedure Anesthesia date START: 06/23/23 Anesthesia time START: 01: Anesthesia date END: 06/23/23 Anesthesia time END: 04:20 Post-procedure Anesthesia Assessment: Yes CV function: HR/BP stable, Yes Resp function: RR/sat/airway adequate, Yes Post-op hydration adequate, Yes Pain control adequate, Yes Nausea & vomiting absent, Yes Temperature > 36 C, Yes Mental status appropriate and No Anesthesia complications
--- NOTE | 2023-06-23 04:40 | PM.OBPRVD ---
Events: Oligohydramnios and Other (Intrauterine growth restriction) Labor & Delivery Delivery date: 06/23/23 Intrapartal Events: None Cervical ripening method: per Cervidil protocol Induction method: per pitocin protocol Delivery augmentation: rupture of membranes Delivery monitor: external FHT and external uterine Route of delivery: Episiotomy description: None L&D Laceration Description: Perineal - 1st Degree Delivery repair: chromic Estimated blood loss (mL): 175 Anesthesia Type: Epidural Complications: None Narrative: Following a 56 minute 2nd stage, the patient delivered spontaneously over an intact perineum a vigorous and viable female infant. Skin to skin contact was initiated immediately and tight nuchal cord reduced after delivery of the infant. Delayed cord clamping was performed and once the umbilical cord was doubly clamped cut, a cord blood sample was obtained for routine studies. Placenta was delivered easily with gentle cord traction and suprapubic countertraction. Inspection of the placenta showed it to be normal appearing placenta, somewhat small, with a central cord insertion three-vessel cord. The placenta will be submitted for pathologic evaluation due to IUGR. Intravenous Pitocin was started immediately upon delivery of the placenta and post delivery bleeding was quickly brought under control. Inspection of the perineum showed a first-degree perineal laceration which was bleeding and was therefore closed with 2-0 chromic running interlocking stitch. Sponge needle counts were correct at the end of the delivery process which was well tolerated by both mother and baby. Baby 1: Infant gender: Female Presentation: vertex Position: Left Occiput Anterior Placenta delivery description: Spontaneous Cord Vessel Description: 3 Vessels and Nuchal Cord score (1 min): 8 score (5 min): 8 weight: 4 lb 6.336 oz Plan for aftercare: Routine care
--- NOTE | 2023-06-23 04:45 | PATH_ITS ---
[facility] Accession Number: [id number] No. of containers..01 Tissue . 01 Material submitted: . placenta - PLACENTA . 01 Diagnosis: Placenta, 37+4 weeks: 1. Third trimester, 307 gram placenta, less than 10th percentile by weight, with mature chorionic villi. 2. Three vessel cord without funisitis. 3. membranes with no evidence of chorioamnionitis. MRV 06/25/2023 1621 Local . 01 Electronically signed: . Sylvia Huffman MD, Pathologist NPI- [id number] . 01 Gross description: . The specimen is received in formalin labeled with the patient's name, , and no additional designation, consists of a discoid latif placenta with a trimmed weight of 307 grams, and measuring 17.4 x 14.6 x 1.5 cm, with no additional lobes identified. . The membranes are cha and translucent with no areas of discoloration or thickening identified. The membranes insert at the margin and have a point of rupture 1.5 cm from the nearest placental disc edge. . The cord measures 44.9 cm in length and ranges from 1.0 to 2.5 cm in diameter with thickened gelatinous areas. The cord inserts centrally, and sectioning reveals gelatinous trivascular architecture with no knots or lesions identified. . The surface is blue-jeffries with normal arborizing vasculature and no discoloration or lesions identified. . The maternal surface is apparently complete with no discoloration or adherent hemorrhage identified. Sectioning reveals red, spongy cut surface with no discoloration or lesions identified. . Underliner sections are submitted as follows: A1: Placental end of cord, thickened area of cord, and membrane roll. A2: end and thickened area of cord, and membrane roll. A3-A5: Central full thickness unremarkable sections. ([id number]) /MRV 06/24/2023 1300 Local . 01 Pathologist provided ICD-10: O43.90 . 01 CPT . 516645 Performed at: 01 [facility] [address] [place] [address] [id number] MD Sherman Palumbo MD Phone: [phone]
--- NOTE | 2023-06-23 05:46 | RT ---
Called to labor and delivery at 0300 for delivery mom was at 37wks but baby had stopped growing. Baby girl was born at 0404 weighing 4lbs 4oz. Started CPAP at 0410 at 0414 gave 4-5 positive pressure breaths to help clear lungs. Baby girls sats were 132 heart rate 100% RR 60 with with retractions above the collor bones and at the ribs. 0435 move the peep to 6. 0448 prone baby did blowby. At 0503 we initiated HHFNC at 3L/min and 21% babys sat remain stable and is on moms chest at this time.
[2023-06-23] MEDS: DOCUSATE 100 MG CAPSULE PO (09:02)
[2023-06-23] MEDS: DERMOPLAST SPRAY 20% 60 ML 1 SPRAY TOP (09:02)
--- NOTE | 2023-06-23 13:23 | PM.OBDS.1 ---
Discharge Providers Provider Date of admission: 06/20/23 18:56 Discharge Date: 06/23/23 Primary care physician: Melody Rowe MD Consults: 06/24/23 04:36 Consult to Janitorial Services Supervisor Routine Comment: Discharge provider: Paul Brannon MD Summary Hospital Course Date Patient Seen: 06/23/23 Time Patient Seen: 13:24 Diagnoses: Intrauterine gestation, [place], 37+ 6 weeks gestational age, delivered by spontaneous vaginal Intrauterine growth restriction Oligohydramnios Rh-negative status Hospital Course: Jl Monroe is a 28 year old admitted now at 37+34 weeks EGA for induction due to IUGR; 4%ile at 20 wks, at 24 wks 4%ile. At 35 wks <1%'tile. Followed by MFM weekly. Induction scheduled 06/21/23 at 37 weeks. Her most recent US at also shows borderline oligohydramnios w/ DESTINY 4.4 cm. course also complicated by Rh-negative status in the antepartum with the patient receiving RhoGAM at 28 weeks. Patient's course has otherwise been uneventful with solid early dating. GBS status is negative. Following admission late on the evening of 06/20/2023, Cervidil was placed for cervical ripening. Patient had minimal change with the Cervidil but Pitocin was initiated early on the afternoon of 06/21/2023. Patient then had oral Cytotec overnight after discontinuation of the Pitocin on the evening of 06/21/2023 and Pitocin was re-initiated early on the morning of 06/22/2023. Patient responded well and late on the afternoon of 06/22/2023 her dilated sufficiently for artificial rupture of membranes which was performed demonstrating clear fluid. The patient then responded well to continued intravenous Pitocin induction and early on the morning of 06/23/2023, delivered spontaneously a viable female infant with Apgars of 8/8 and a weight of 1994 g. Full details regarding the delivery procedure are well summarized on my delivery note of that date. Her baby, while initially vigorous, encountered issues following delivery such as temperature regulation and maintaining adequate oxygen saturation which required high-flow nasal oxygen. As result the attending pediatric provider made the decision to transfer the infant to [facility] for continued care and therefore the patient is being discharged at the time of the baby's transfer. The patient herself has done extremely well following delivery with prompt return of bowel and bladder function, she is ambulating independently, tolerating regular diet, and her pain is well controlled with oral pain medications. She will be discharged at this time to home in an afebrile normotensive condition after counseling regarding precautionary symptoms, limitations of activity, medications, plans for follow-up which will be in [address] Taylor. Medications at discharge will include resumption of her vitamins and she will use [id number] Tylenol and/or ibuprofen for pain control. Peripartum Data Delivery Method: Natural Vaginal Laceration Description: Perineal - 1st Degree Episiotomy description: None Procedures: Continuous lumbar epidural Spontaneous vaginal with repair of first-degree perineal laceration complications: none 1: Gender: Female Disposition of : other (Transferred by ambulance to [facility] for continued care) Discharge Diagnosis (1) Intrauterine growth restriction (IUGR), delivered, current hospitalization: Status: Acute Status at Discharge Cognitive/behavioral status at discharge: oriented Functional status at discharge: independent ambulation Overall status at discharge: patient is progressing back to baseline Time Spent with Patient Time attestation: Total time spent providing and/or coordinating discharge services: Time spent: Less than 30 minutes Objective Labs 06/20/23 19:40 Exam Const General: cooperative and comfortable Nutritional Appearance: average body habitus Orientation: alert and oriented x3 HENMT Head: normal to inspection, normocephalic and atraumatic Ears: hearing grossly normal bilaterally Face and sinus: face symmetric Eyes General: appearance normal, both eyes and all related structures Conjunctivae: conjunctivae normal Sclera: sclerae normal EOM: EOM intact bilaterally Neck Neck: normal visual inspection Resp Effort & Inspection: normal respiratory effort and able to speak in complete sentences GI Palpation: mass (Firm) and No tender Psych Appearance: grossly normal Mental Status: mental status grossly normal Speech and Movement: speech and movement normal Mood: congruent mood Affect: normal affect Attitude: cooperative Thought Process: normal Thought Content: normal Judgment: judgment good Discharge Plan Discharge Plan Patient Disposition: Home Provider Discharge Comment: Please review the written instructions you received when you were discharged from the hospital. Your follow-up appointment will be scheduled for 6 weeks after delivery and I look forward to seeing you then. If however in the meanwhile you have any issues, concerns, or questions, please contact the office at either [phone] or via the patient portal. Discharge orders & Medications Prescriptions: Continued prenat.vits,seamus,eyu-vria-rmjqd Tablet 1 tab PO DAILY No Action CMP-Triple Nipple Cream cream See Rx Instructions .ROUTE .COMPLEX Qty: 1 0RF Rx Instructions: Apply to nipples after a feeding up to 4 times a day. Wipe off before next feeding.; Follow up/Referrals: Tati Taylor MD [Physician] - 08/03/23 8:30 am Melody Rowe MD [Primary Care Provider] - Discharge Health Status Multidrug resistant organism: No MDRO Diet/Activity/Treatments Diet: Diet as Tolerated Activity: As tolerated Other treatments: Hrvk-ots-rudsigx Tylenol and/or ibuprofen may be used for pain relief. Colace and/or MiraLax may be used as needed for constipation. Skin/Wound/Dressing Care Report to your healthcare provider any signs of infection, such as:: chills, fever Dressing: N/A Visit Report/Discharge Packet Instructions: Depression, DI for Labor and Delivery, Vaginal , DI for and Nipple Soreness Stand Alone Forms: Discharge: Care Discharge Data Primary Care Provider: Melody Rowe
== END 2023-06-23 17:49 | disposition home or self-care (01) | DRG 806 ==
PROVIDERS: Specialist; Admitting Provider Obstetrics & Gynecology; PCP Family Medicine; Referring Provider Obstetrics & Gynecology; Visit Provider Obstetrics & Gynecology
DX: O36.5930 Maternal care for other known or suspected poor fetal growth, third trimester, not applicable or unspecified (principal); O41.03X0 Oligohydramnios, third trimester, not applicable or unspecified; Z37.0 Single live birth; Z3A.37 37 weeks gestation of pregnancy; Z67.41 Type O blood, Rh negative; O70.0 First degree perineal laceration during delivery; Z3A.36 36 weeks gestation of pregnancy; O09.93 Supervision of high risk pregnancy, unspecified, third trimester
CPT/HCPCS: 36415; 59025; 59050; 59200; 59400; 59409; 85025; 86850; 86870; 86900; 86901; G0379; J2405; J2590

== ENCOUNTER → 2024-07-27 14:57 | Outpatient (CLI) | payer BC, SELFPAY ==
[2024-07-27 16:34] LABS: Urine N gonorrhoeae NOT DETECTED
[2024-07-27 16:43] LABS: Urine Chlamydia NOT DETECTED
== END ==
PROVIDERS: PCP Family Medicine; Visit Provider Obstetrics & Gynecology
DX: Z11.3 Encounter for screening for infections with a predominantly sexual mode of transmission (principal); Z3A.08 8 weeks gestation of pregnancy
CPT/HCPCS: 87491; 87591

== ENCOUNTER → 2024-08-09 15:09 | Outpatient (CLI) | payer BC, SELFPAY ==
[2024-08-09 16:01] LABS: Add Manual Diff / Slide Review NO; Basophils Absolute Auto 0 /uL (0-100); Basophils Percent Auto 0.5 % (0-2); Eosinophils Absolute Auto 100 /uL (0-450); Eosinophils Percent Auto 0.9 % (2-4); Hematocrit 42.2 % (36-46); Hemoglobin 14.3 g/dL (12.0-16.0); Lymphocytes Absolute Auto 1700 /uL (1100-4500); Lymphocytes Percent Auto 20.7 % (25-40); Mean Corpuscular HGB Conc 33.7 % (30-36); Mean Corpuscular Hemoglobin 29.2 PG (26-34); Mean Corpuscular Volume 86.4 fL (80-100); Monocytes Absolute Auto 400 /uL (0-900); Monocytes Percent Auto 4.9 % (3-14); Neutrophils Absolute Auto 6100 /uL (1500-7000); Platelet Count 349 X10^3/uL (150-400); Red Blood Cell Count 4.89 X10^6/uL (4.0-5.2); White Blood Cell Count 8.4 X10^3/uL (4.5-11.0)
[2024-08-10 15:12] LABS: Hepatitis B Surface Antigen NEGATIVE s/c (NEGATIVE); Rubella Antibody IgG 25.9 IU/mL (>15)
[2024-08-10 15:28] LABS: HIV 1 & 2 Ab/Ag 4th Gen Combo NEGATIVE (NEGATIVE); Hep C Virus Ab w/Reflex Quant NEGATIVE s/c (NEGATIVE)
[2024-08-11 04:36] LABS: RPR Screen Non Reactive (Non Reactive)
[2024-08-11 12:36] LABS: Varicella IgG Antibody Reactive (Non Reactive)
== END ==
PROVIDERS: PCP Family Medicine; Referring Provider Obstetrics & Gynecology; Visit Provider Obstetrics & Gynecology
DX: Z34.80 Encounter for supervision of other normal pregnancy, unspecified trimester (principal)
CPT/HCPCS: 36415; 80055; 86787; 86803; 86850; 86900; 86901; 87086; 87389

== ENCOUNTER → 2024-08-23 14:11 | Outpatient (CLI) | payer BC, SELFPAY ==
[2024-08-23 15:19] LABS: Natera Collection Specimen Collected
== END ==
PROVIDERS: PCP Family Medicine; Referring Provider Obstetrics & Gynecology; Visit Provider Obstetrics & Gynecology
DX: Z34.91 Encounter for supervision of normal pregnancy, unspecified, first trimester (principal); Z3A.11 11 weeks gestation of pregnancy
CPT/HCPCS: 36415

== ENCOUNTER → 2024-09-20 09:20 | Outpatient (CLI) | payer BC, SELFPAY | PROVIDERS: PCP Family Medicine; Referring Provider Specialist; Visit Provider Specialist | DX: Z34.92 Encounter for supervision of normal pregnancy, unspecified, second trimester (principal); Z3A.16 16 weeks gestation of pregnancy | CPT/HCPCS: 36415; 82105 ==

== ENCOUNTER → 2024-10-18 11:41 | Outpatient (CLI) | payer BC, SELFPAY ==
--- NOTE | 2024-10-18 11:43 | DI.US.S_ITS ---
PROCEDURE: US OB >= 14 WEEKS FETUS INDICATIONS: 20 week anatomy scan OUTSIDE/PRIOR DATING DATA: Working ARIELA: 03/01/2025 TECHNIQUE: Real-time scanning was performed of the fetus, with image documentation and biometric measurements. Endovaginal scanning: Not performed COMPARISON: [facility], , US OB >= 14 WEEKS FETUS, 06/04/2023, 10:23. FINDINGS: General: A single living intrauterine gestation is present. Presentation: Vertex. Placenta: Placental position is posterior , without previa. Amniotic fluid index: 13.4 cm, normal range is 5-24 cm. Single deepest vertical pocket is 4.4 cm. heart rate: 152 beats per minute. Maternal cervical canal: 3.1 cm long. Normal lower limit is 2.5 cm. biometrics: Biparietal diameter: 4.6 cm, 19 weeks 6 days Head circumference: 17.2 cm, 19 weeks 5 days Abdominal circumference: 13.9 cm, 19 weeks 2 days Femur length: 3.6 cm, 21 weeks 2 days Clinically estimated gestational age: 20 weeks 6 days Composite gestational age from present scan: 20 weeks 0 days Estimated weight and percentile: 337 g, 15th percentile Anatomic survey: Neuro: Ventricles are non-dilated at less than 10 mm. Cisterna magna is normal at 3-11 mm. Cerebellum is normal in size and morphology. Nuchal skin fold: Normal at less than 6 mm between 14-21 weeks gestational age. Face: Nose and lips, facial profile are normal. Spine: No evidence for spina bifida. Heart: 4-chambered heart is present, with normal ventricular outflow tracts. Diaphragm: Diaphragm is intact. Stomach: Left-sided stomach is present. Kidneys: No hydronephrosis. Normal is less than 5 mm in 2nd trimester, less than 7 mm in 3rd trimester. Cord: 3-vessel cord has orthotopic insertion. Bladder: Normal in size. Extremities: All 4 extremities identified. IMPRESSION: Single living intrauterine at 20 weeks 6 days, ARIELA of 03/01/2025. Estimated weight of 337 g, 15th percentile. Normal anatomy survey. We strive to produce accurate, complete, and clear reports of imaging services. To assist us in improving patient care, this report was composed using standard report templates and voice recognition software. Therefore, it may contain abnormal punctuation, insertions and/or omissions. Occasional wrong-word or sound-alike substitutions may occur. Though we review the report and make efforts to correct it, we do recommend that the report be read carefully in proper context to recognize any text inaccuracies. Dictated by: Magdaleno Francis M.D. on 10/18/2024 at 14:54 Approved by: Magdaleno Francis M.D. on 10/18/2024 at 14:56
== END ==
LOC: US 11:42
PROVIDERS: PCP Family Medicine; Referring Provider Specialist; Visit Provider Specialist
DX: Z34.92 Encounter for supervision of normal pregnancy, unspecified, second trimester (principal); Z3A.20 20 weeks gestation of pregnancy
CPT/HCPCS: 76811

== ENCOUNTER → 2024-11-17 10:07 | Outpatient (CLI) | payer BC, SELFPAY ==
[2024-11-17 12:33] LABS: Hematocrit 38.4 % (36-46); Hemoglobin 12.8 g/dL (12.0-16.0)
[2024-11-17 12:55] LABS: GTT (PREG) 1 Hour PP 50gm Dose 96 mg/dL (76-139)
== END ==
PROVIDERS: PCP Family Medicine; Referring Provider Obstetrics & Gynecology; Visit Provider Obstetrics & Gynecology
DX: Z34.92 Encounter for supervision of normal pregnancy, unspecified, second trimester (principal); Z3A.26 26 weeks gestation of pregnancy
CPT/HCPCS: 82950; 85014; 85018; 86850

== ENCOUNTER 2025-02-06 08:46 | Outpatient (CLI) | payer BC, SELFPAY | END 2025-02-06 09:55 | disposition home or self-care (01) | LOC: LABOR 09:31 → OB 11:19 | PROVIDERS: PCP Family Medicine; Referring Provider Obstetrics & Gynecology; Visit Provider Obstetrics & Gynecology | DX: O36.5930 Maternal care for other known or suspected poor fetal growth, third trimester, not applicable or unspecified (principal); Z3A.36 36 weeks gestation of pregnancy | CPT/HCPCS: 59025; G0378; G0379 ==

== ENCOUNTER 2025-02-08 18:38 | Inpatient (IN) | payer BC, SELFPAY ==
--- NOTE | 2025-02-08 19:48 | PM.OBHP.IH.1 ---
OB HPI Date/Time Date of admission: 02/08/25 Date Patient Seen: 02/08/25 Time Patient Seen: 19:45 History of Present Condition Chief complaint: Induction ARIELA Calculator Estimated Delivery Date Method Current WG Current Estimate 03/01/25 Ultrasound #1 37w 0d Other Estimates 03/08/25 LMP (Certain) 36w 0d : 2 Para: 1 Narrative: Patient is a 29yo @ 37wks presents to L&D for scheduled induction of labor due to growth restriction. Patient with a previous with FGR- suspect constitutional. [facility] US on 02/06- 2126gm, 3%, AC 1% ,UA dopplers normal, DESTINY normal due to severe FGR and AC at 1% MFM recommeds delivery at 37wks. patient has no complaints this evening. denies any ctxs, LOF, VB and reports good movement. care: good care Dating criteria OB: based on 1st trimester US only Ultrasounds: abnormal US findings Abnormal ultrasound findings: growth restriction- EFW- 3%, A1% Obstetrical complications: growth restriction Medical complications OB: none Indications Indication for induction OB: intra-uterine growth restriction Preadmission Labs Last OB Lab Results: Blood Type O Negative 08/09/24, 15:12 Antibody Screen Negative 11/17/24, 11:14 Hct, (36-46) 38.4 % 11/17/24, 11:14 Hgb, (12.0-16.0) 12.8 g/dL 11/17/24, 11:14 Hep Bs Antigen, (NEGATIVE) Negative s/c 08/09/24, 15:12 Hepatitis C Antibody, (NEGATIVE) Negative s/c 08/09/24, 15:12 Rubella Antibody, (>15) 25.9 IU/mL 08/09/24, 15:12 VZV IgG Antibody, (Non Reactive) Reactive 08/09/24, 15:12 Glucose 1 Hr 50 gm, (76-139) 96 mg/dL 11/17/24, 10:10 Group B Strep (PCR) Neg for grp b strep 01/24/25, 15:02 -: Chlamydia screen: negative, Gonorrhea screen: negative and Urine: negative External Labs -: Urine: negative Prior (ies) Past Pregnancies Del. Date GA/Weeks Labor Lgth Wt Sex Route Outcome Anesthesia Place Delv Breastfeed Preg Comp Name 06/23/23 37.5 4 4 lb 6.3 oz Female vaginal live - full term [facility] 8-9 months Nov Delivery Date: 06/23/23 Last Updated by: Tati Taylor MD baby transferred and in NICU, pt lap ramez Hx # Term Pregnancies: 2 Number of Living Children: 1 Evaluation Evaluation Baseline heart rate: 145 Variability: Moderate (6-25) monitor accelerations: Present Monitor Decelerations: Absent Contraction Frequency (minutes): 0 Category of Tracing: Reactive Status: Category l Dilation (cm): 0 Effacement (%): 30 Dilation: Closed Effacement: 0-30% station: -3 Position of cervix: mid Consistency: soft (exam done in the office 02/05-- not repeated today) Guzman score: 3 PFSH Medical History (Updated 01/30/25 @ 16:16 by Rubi Du DO) Intrauterine growth restriction (IUGR), delivered, current hospitalization Headache Fractures Ankle pain Insomnia Psoriasis Migraines Anxiety and depression Surgical History (Updated 08/08/23 @ 22:29 by Tati Taylor MD) S/P laparoscopic cholecystectomy H/O wisdom tooth extraction Family History (Updated 07/04/24 @ 14:17 by Marva Llanos RN) Grandmother Hypertension Cancer Breast cancer Mother Asthma Migraines Smoker Grandfather Diabetes mellitus Irregular heart rate Uncle IBS (irritable bowel syndrome) Social History marital status: number of children: 1 household members: spouse and children lives independently: Yes caregiver/support person: Yes housing: house pets and animals: Yes (dog & cats) education level: vocational occupational status: employed current occupational exposures/hazards: No alaina/mandaeism: Sabianist special alaina needs: No travel history: recent ([place], going to [place] next month) seatbelt use: always helmet use: Yes water heater temp set < 120 deg: Yes working smoke detector in home: Yes fire extinguisher in home: Yes carbon monox detector in home: Yes firearms in home: Yes firearms unloaded and locked: Yes do you feel safe at home: Yes second hand exposure: Yes (mother and MIL both smoke) alcohol intake: former (not since prior to 1st ) substance use type: marijuana (not recently, doesn't plan to use again) during the past year weight has: other (back to non- weight (lost wt w/ 1st baby)) well-balanced diet: rarely or never daily servings fruits/ve-1 caffeine: Yes (aware of 200mg limit) Type(s) of exercise: walking frequency: 3-4 times per week Meds Home Medications and Allergies Home Medications ?Medication ?Instructions ?Recorded ?Confirmed ?Type prenat.vits,seamus,vnr-kadl-ldlik 1 tab PO DAILY 11/09/22 01/30/25 History ondansetron 4 mg disintegrating 4 mg PO Q6H PRN nausea vomiting 06/29/24 01/30/25 Rx tablet #14 tabs Allergies Allergy/AdvReac Type Severity Reaction Status Date / Time No Known Drug Allergies Allergy Unverified 01/30/25 15:50 OB Exam HENMT Head: normal to inspection Resp Effort & Inspection: normal respiratory effort and able to speak in complete sentences GI Inspection: normal to inspection Palpation: Yes soft Presentation: vertex Estimated Weight (lbs): 5 Other: BSUS confirmed vertex presentation Assessment and Plan Assessment and Plan Assessment and Plan narrative: Vargas is a 29yo @ 37wks presents to L&D for scheduled IOL for FGR 1. IOL due to FGR - CEFM, IVF, regular diet during cervical ripening - Misoprostol 25mcg PO q 4 hrs for cervical ripening - cervix- 030/-3, soft in clinic on 02/05 - BSUS confirmed vertex presentation - FHTs category 1 - GBS negative 2. FGR-- suspect constitutional- previous child with similar Growth restriction - MFM US 02/06- 2126gm, 3%, AC1% - patient discussed with Dr. Mcintosh on for peds- comfortable with delivery [facility] - UA dopplers normal and BPP 10/10 on 02/05 anticipate vaginal delivery Time-Based Coding :: [TOTAL MINUTES] spent with patient and on the chart (including review of chart, obtaining history, exam, reviewing outside data, placing orders, documenting exam and treatment plan, and counseling patient) on [DATE].
[2025-02-08 20:49] LABS: Add Manual Diff / Slide Review NO; Hematocrit 38.1 % (36-46); Hemoglobin 13.0 g/dL (12.0-16.0); Lymphocytes Absolute Auto 2400 /uL (1100-4500); Mean Corpuscular HGB Conc 34.2 % (30-36); Mean Corpuscular Hemoglobin 29.2 PG (26-34); Mean Corpuscular Volume 85.6 fL (80-100); Platelet Count 282 X10^3/uL (150-400)
[2025-02-09] MEDS: CALCIUM CARBONATE 500 MG TAB 1000 MG PO (00:33)
[2025-02-09] MEDS: OXYTOCIN PREMIX 30 UNIT/500 ML PLAST..BAG IV (18:26)
[2025-02-09] MEDS: LACTATED RINGERS 1,000 ML 100 ML IV (18:26)
--- NOTE | 2025-02-09 23:07 | P.PCN_ITS ---
[facility] Pre-procedure Procedure: Continuous Lumbar Epidural for L&D (with dural puncture) Attending OB provider: Rubi Du PMH/ROS narrative: 29yo female at 37-1 being induced for growth restriction, now in early labor and requesting epidural. Pt was extremely nervous and second- guessing herself. Spent +40 minutes answering her questions and providing reassurance, and then set a slow pace for epidural placement, which pt tolerated well. See pre-anesthesia evaluation for further details. ASA Class: II Labs: Hct 38.1 % (36-46) 02/08/25 20:20 Plt Count 282 X10^3/uL (150-400) 02/08/25 20:20 Medications: Current Medications Generic Name Dose Route Start Last Admin Trade Name Freq PRN Reason Stop Dose Admin Calcium Carbonate 1,000 mg 02/09/25 00:13 02/09/25 00:33 Calcium Carbonate 500 Mg Tab PO 1,000 mg Q4HR PRN Administration Dyspepsia Carboprost Tromethamine 250 mcg 02/08/25 19:43 Carboprost 250 Mcg/Ml Ampul IM Q90M PRN Bleeding Diphenhydramine HCl 25 mg 02/09/25 23:05 Diphenhydramine 50 Mg/Ml Vial IV Q10M PRN Pruritis Ephedrine Sulfate 10 mg 02/09/25 23:05 Ephedrine 50 Mg/Ml Vial IV Q5M PRN Blood pressure decrease more than 20% of baseline. Oxytocin/Lactated Ringer's 30 unit in 500 mls @ 200 mls/hr 02/08/25 19:43 Oxytocin Premix IV CONT PRN Bleeding Protocol Tranexamic Acid 1,000 mg/ 100 mls @ 600 mls/hr 02/08/25 19:43 Sodium Chloride IV NOW PRN Bleeding Oxytocin/Lactated Ringer's 30 unit in 500 mls @ 2 mls/hr 02/09/25 18:10 02/09/25 18:26 Oxytocin Premix IV 2 milliunit/min TITRATE TIM 2 mls/hr Protocol Administration 2 MILLIUNIT/MIN FENT 2MCG/ML BUPIV 0.125% EPI 200 mcg in 100 mls @ 6 mls/hr 02/09/25 23:15 Fentanyl/Bupiv/Ns 2mcg/Ml - 0.125% EPIDURAL CONT TIM Lidocaine HCl 20 ml 02/08/25 19:43 Lidocaine 1% 20 Ml INJ INTRA-OP PRN Post Delivery Methylergonovine Maleate 0.2 mg 02/08/25 19:43 Methylergonovine 0.2 Mg Tablet PO Q6HR PRN Heavy Bleeding Methylergonovine Maleate 0.2 mg 02/08/25 19:43 Methylergonovine 0.2 Mg/Ml Vial IM NOW PRN Bleeding Metoclopramide HCl 10 mg 02/09/25 23:06 Metoclopramide 10 Mg/2 Ml Inj IV 02/10/25 23:06 Q4H PRN Nausea Mineral Oil 30 ml 02/08/25 19:43 Mineral Oil 30 Ml Udc TOP PRN PRN Version Misoprostol 800 mcg 02/08/25 19:43 Misoprostol 200 Mcg Tablet DC NOW PRN Bleeding Misoprostol 400 mcg 02/08/25 19:43 Misoprostol 200 Mcg Tablet SL NOW PRN Bleeding Misoprostol 25 mcg 02/09/25 15:56 02/09/25 15:53 Misoprostol 25 Mcg Tablet PO 25 mcg Q2HR TIM Administration Nalbuphine HCl 2.5 mg 02/09/25 23:05 Nalbuphine 20 Mg/Ml Ampul IV Q10M PRN Pruritis Naloxone HCl 0.2 mg 02/08/25 19:43 Naloxone 0.4 Mg/Ml Vial IV Q2MIN PRN Opiate Reversal Ondansetron HCl 4 mg 02/09/25 18:38 Ondansetron 4 Mg/2 Ml Inj IV Q4HR PRN Nausea And Vomiting Ondansetron HCl 4 mg 02/09/25 23:06 Ondansetron 4 Mg/2 Ml Inj IV 02/10/25 23:06 Q6HR PRN Nausea Oxytocin 10 unit 02/08/25 19:43 Oxytocin 10 Unit/Ml Vial IM NOW PRN Bleeding Allergies: Allergies Allergy/AdvReac Type Severity Reaction Status Date / Time No Known Drug Allergies Allergy Unverified 01/30/25 15:50 Procedure Insertion date: 02/09/25 Insertion time: 22:28 Prep/Local: 1% lidocaine (Chloraprep) Interspace: L3-4 Patient position: sitting Needle: 18 gauge Ibantead (27g Pencan for dural puncture) Loss of resistance with: saline RAHEL at (cm): 6 Catheter placed at SKIN (cm): 14 Catheter in SPACE (cm): 8 Insertion: Yes CSF, No Blood, No Paresthesia with insertion, No Paresthesia with injection and No Test dose reaction Initial Medications TEST DOSE time: 22:30 TEST DOSE: 1.5% lidocaine with epinephrine 1:200k (mL): 3 BOLUS DOSE time: 22:31 BOLUS DOSE (mL): 2 BOLUS DOSE med: other (Same as test dose) Infusion INFUSION: 0.125% bupivacaine and with fentanyl 2 mcg/mL Initial rate (mL/hr): 6 Subsequent interventions: Epidural placement went very smoothly on first attempt. Easily able to palpate spinous processes. Pt tolerated procedure very well. Epidural infusion started at 22:55. By then, pt's BLE were very heavy and she was barely moving her feet. Started infusion at low dose of 6 ml/hr with 5 ml bolus. Pt had had minimal contraction pains prior to placement. She did start having more regular and larger contractions after placement, but she denied any pain. Paola Called for pt requesting increase in epidural rate. Assessed pt. She reports feeling a lot of cervical pressure and fluid leaking. BLE appear very heavy, but staff says pt was able to get onto all fours earlier. Last check 10 minutes earlier. Increased epidural rate from 6 to 10 ml/hr. Pt appears uncomfortable, so bolus offered. While at [facility], pt was rechecked and is complete, so I determined not to give bolus. Since induction was for growth restriction, stayed in room in case of need. Baby was born 04:29 with good tone and breathing and was able to do [id number] with mom. Stayed until 5 minute camelia; no resuscitation needed. Paola Post-procedure Anesthesia date START: 02/09/25 Anesthesia time START: 22:16 Anesthesia date END: 02/10/25 Anesthesia time END: 04:34 Post-procedure Anesthesia Assessment: Yes CV function: HR/BP stable, Yes Resp function: RR/sat/airway adequate, Yes Post-op hydration adequate, Yes Pain control adequate, Yes Nausea & vomiting absent, Yes Temperature > 36 C, Yes Mental status appropriate and No Anesthesia complications
[2025-02-10] MEDS: ONDANSETRON 4 MG/2 ML INJ IV (02:03)
--- NOTE | 2025-02-10 05:00 | PM.OBPRVD ---
Events: Labor Induction and Other ( growth restriction) Labor & Delivery Delivery date: 02/10/25 Delivery Time: 04:29 Intrapartal Events: None Cervical ripening method: per misoprostal protocol Induction method: per pitocin protocol Delivery augmentation: rupture of membranes Delivery monitor: external FHT Route of delivery: L&D Laceration Description: None Estimated blood loss (mL): 50 Anesthesia Type: Epidural Complications: none Narrative: Patient is a 29yo G2 now P2 presented to L&D at 37wks for IOL due to growth restriction. Cervix was cl/th/hi on admit. Received misoprostol 25mcg bucal q 4 hours x 6 doses. Her cervix progressed to 3/60/-3 and pitocin was started. She received an epidural for pain control. Amniotomy performed with clear fluid noted. She then progressed to complete dilation and uncomplicated . Vigorous male born and placed directly on mom's chest. He was evaluated by assembler fluorescent lights present (Dr. Mcintosh) and apgars 9/9 were determine. Placenta delivered spontaneously. Minimal bleeding and uterus firm. No lacerations. Baby and mother healthy in room bonding. [place] Baby 1: Infant gender: Male Presentation: vertex Position: Left Occiput Anterior Placenta delivery description: Spontaneous Cord Vessel Description: 3 Vessels score (1 min): 9 score (5 min): 9 Plan for aftercare: Routine care
[2025-02-10] MEDS: DERMOPLAST SPRAY 20% 60 ML 1 SPRAY TOP (05:33)
[2025-02-10] MEDS: LANOLIN OINT 7 GM 1 APPLIC TOP (05:33)
[2025-02-10] MEDS: KETOROLAC 30 MG/ML VIAL IV (05:34)
[2025-02-10] MEDS: ACETAMINOPHEN 325 MG TABLET 650 MG PO (05:34)
[2025-02-10] MEDS: DOCUSATE 100 MG CAPSULE PO (16:43)
[2025-02-10] MEDS: IBUPROFEN 600 MG TABLET PO (19:53)
--- NOTE | 2025-02-11 08:51 | PM.OBDS.1 ---
Discharge Providers Provider Date of admission: 02/08/25 18:38 Discharge Date: 02/11/25 Primary care physician: Melody Rowe MD Consults: 02/08/25 19:43 Consult to Anesthesiology Urgent Comment: Consulting Provider: Sylvia Walker Reason for consultation: Epidural 02/10/25 04:58 Consult to Drafting Instructor Routine Comment: Discharge provider: Shaunna Black DO Summary Hospital Course Date Patient Seen: 02/11/25 Time Patient Seen: 08:53 Diagnoses: S/p vaginal delivery Hospital Course: The patient was admitted for induction of labor for intrauterine growth restriction. She underwent cervical ripening, and Pitocin augmentation then had amniotomy. She had an epidural placed. Her labor continued to progress normally and she became completely dilated. On hospital day 2, she underwent a successful vaginal delivery over an intact perineum. Her recovery was uncomplicated. Her vital signs remained stable . Her bleeding was well controlled. Her pain was controlled on oral pain medications. She was and pumping. Baby requires additional care due to growth restriction. Mother is stable for discharge on hospital day 3. She will be discharged to [facility] at this time and remain bedside with her . Peripartum Data Delivery Method: Natural Vaginal Laceration Description: None complications: none 1: Gender: Male Discharge Diagnosis (1) Vaginal delivery: Status: Acute Status at Discharge Cognitive/behavioral status at discharge: oriented Functional status at discharge: independent ambulation Overall status at discharge: patient is back to baseline Time Spent with Patient Time attestation: Total time spent providing and/or coordinating discharge services: 37 minutes Time spent: Greater than 30 minutes Objective Labs 02/08/25 20:20 Exam Const General: cooperative and healthy appearing Orientation: alert HENND Head: normal to inspection Resp Effort & Inspection: normal respiratory effort Cardio Rate: regular rate Rhythm: regular rhythm GI Palpation: soft and No tender Other: fundus firm, midline, 2 below umbilicus Skin General: dry skin and warm Lesions: no lesions Neuro General: patient alert, patient awake and patient oriented x3 Speech: speech normal Extrem General: no clubbing, cyanosis or edema Psych Appearance: grossly normal Mental Status: mental status grossly normal Affect: normal affect Discharge Plan Discharge Plan Patient Disposition: Home Discharge orders & Medications Prescriptions: New docusate sodium [Colace] 100 mg capsule 100 mg PO DAILY 30 Days Qty: 30 0RF ibuprofen 600 mg tablet 600 mg PO Q6H MDD 4 tablets PRN (Reason: pain, cramping) 30 Days Qty: 30 0RF Continued ondansetron 4 mg tablet,disintegrating 4 mg PO Q6H PRN (Reason: nausea vomiting) Qty: 14 0RF prenat.vits,seamus,[id number] Tablet 1 tab PO DAILY Follow up/Referrals: Melody Rowe MD [Primary Care Provider, Medical] Diet/Activity/Treatments Diet: Diet as Tolerated Activity: Pelvic rest. Nothing in the vagina for 6 weeks. Only use pads, and do not use tampons. No intercourse for 6 weeks. Do not submerge in a bathtub, pull, or Jacuzzi for 6 weeks. Physical activity as tolerated. Cold/Heat Therapy: Okay to use heating pads as needed. Skin/Wound/Dressing Care Skin care: You can continue to use Dermoplast spray and witch shireen pads PRN. Report to your healthcare provider any signs of infection, such as:: chills, fever and increased pain Visit Report/Discharge Packet Stand Alone Forms: Patient Portal/API, Stroke Signs & Symptoms Discharge Data Primary Care Provider: Melody Rowe Attending Provider: Rubi Du Admeba Date/Time: 02/08/25 18:38
[2025-02-11] MEDS: ACETAMINOPHEN 325 MG TABLET 650 MG PO (09:00)
[2025-02-11] MEDS: IBUPROFEN 600 MG TABLET PO (09:00)
[2025-02-11] MEDS: DOCUSATE 100 MG CAPSULE PO (09:00)
[2025-02-11 09:32] VITALS: BP 93/56; PULSE 69; RESP 14; TEMP 36.8
== END 2025-02-11 13:18 | disposition home or self-care (01) | DRG 807 ==
PROVIDERS: Admitting Provider Obstetrics & Gynecology; PCP Family Medicine; Referring Provider Obstetrics & Gynecology; Visit Provider Obstetrics & Gynecology
DX: O36.5930 Maternal care for other known or suspected poor fetal growth, third trimester, not applicable or unspecified (principal); Z37.0 Single live birth; Z3A.37 37 weeks gestation of pregnancy
CPT/HCPCS: 36415; 59050; 59200; 76815; 85025; 86850; 86900; 86901; G0378; G0379; J1885; J2405; J2590